=== PATIENT | male | born 1960 | race Caucasian/White ===

== ENCOUNTER 2017-06-11 18:37 | Inpatient (IN) | payer OTHER ==
[~2017-06-11] VITALS: Ht 188 cm; Wt 91.6 kg
--- NOTE | 2017-06-11 18:55 | NUR ---
[facility] BED 12. PT WAS SENT BY PMD FOR A MEDICAL EVAL. PT IS C/O ABDOMINAL DISTENSION AND REQUESTING FOR A PARACENTESIS. LAST PARACENTECIS WAS DONE 3 WEEKS AGO. PT ALSO C/O ABDOMONAL DISCOMFORT. PLACED ON MONITOR. AWAITING MD STUART.
--- NOTE | 2017-06-11 19:05 | NUR ---
DR BECK AT BEDSIDE FOR EVAL.
--- NOTE | 2017-06-11 19:10 | NUR ---
KITCHEN HELP HANDYMAN AT BEDSIDE FOR BLOOD DRAW.
--- NOTE | 2017-06-11 19:15 | NUR ---
PT UNABLE TO URINATE AT THIS TIME.
[2017-06-11 20:02] LABS: BASOPHILS # (AUTO) 0.1 /CMM (0.0-0.2); BASOPHILS % (AUTO) 0.7 % (0.0-2.0); EOSINOPHILS # (AUTO) 1.4 /CMM (0.0-0.7); HEMATOCRIT 36 % (39-51); HEMOGLOBIN 12.3 g/dL (13.5-17.5); LYMPHOCYTES # (AUTO) 1.2 /CMM (0.8-4.8); LYMPHOCYTES % (AUTO) 9.5 % (20.0-44.0); MEAN CORPUSCULAR HEMOGLOBIN 31 PG (26.0-33.0); MEAN CORPUSCULAR HGB CONC 34 g/dl (31.0-36.0); MEAN CORPUSCULAR VOLUME 91 fL (80-96); MONOCYTES % (AUTO) 7.6 % (2.0-12.0); NEUTROPHILS # (AUTO) 9.1 /CMM (1.8-8.9); NEUTROPHILS % (AUTO) 71.2 % (43.0-81.0); PLATELET COUNT (AUTO) 256 /CMM (150-450); RED BLOOD CELL COUNT(AUTO) 4.02 MIL/uL (4.5-6.0); WHITE BLOOD COUNT (AUTO) 12.8 K/uL (4.3-11.0)
[2017-06-11 20:07] LABS: ALBUMIN 3.2 g/dL (3.4-5.0); BILIRUBIN,DIRECT 0.4 mg/dL (0.0-0.2); CALCIUM, SERUM 9.9 mg/dL (8.5-10.1); CREATININE 4.5 mg/dL (0.6-1.3); TOTAL PROTEIN, SERUM 7.1 g/dL (6.4-8.2)
[2017-06-11 20:23] LABS: INR 1.04 (0.87-1.13); PROTHROMBIN TIME 10.8 SECS (9.5-12.7)
[2017-06-11] MEDS ORDERED: IV NS 0.9% 500 ML BAG IV ONE (21:00)
[2017-06-11] MEDS ORDERED: FAMOTIDINE/PF INJ 20 MG/2 ML VIAL IV ONE ×2 (21:00→21:19)
--- NOTE | 2017-06-11 22:42 | NUR ---
REPORT GIVEN TO NAZ. PT AWAITING TRANSFER TO FLOOR.
[2017-06-11] MEDS ORDERED: LACT10SO7 PO (22:52)
[2017-06-11] MEDS ORDERED: RIFA550T PO (22:52)
[2017-06-11] MEDS ORDERED: FLUT1DIS3 INH (22:52)
[2017-06-11 23:30] VITALS: BP 96/52
[2017-06-11] MEDS ORDERED: ACETAMINOPHEN 325 MG TABLET PO PRN (23:30)
[2017-06-11] MEDS ORDERED: ONDANSETRON HCL/PF 4 MG/2 ML VIAL IVP PRN (23:30)
[2017-06-11] MEDS ORDERED: MAGNESIUM HYDROXIDE 30 ML UDC PO PRN (23:30)
[2017-06-11] MEDS ORDERED: Z GUARD REMEDY 2 OZ OINT TP PRN (23:30)
[2017-06-11] MEDS ORDERED: ZOLPIDEM TARTRATE 5 MG TABLET PO PRN (23:30)
[2017-06-11] MEDS ORDERED: MAG HYDROX/AL HYDROX/SIMETH 30 ML UDC PO PRN (23:30)
--- NOTE | 2017-06-11 23:30 | NUR ---
MS/RN OPENING NOTES PT ARRIVED TO UNIT FROM ER VIA GURNEY. A/OX3, ON ROOM AIR, BREATHING EVEN AND UNLABORED. DENIES SOB OR ABDOMINAL PAIN. IV TO LAC PATENT AND INTACT. ORIENTED PT TO ROOM AND CALL LIGHT. SIDE RAILS UPX2. BED IN LOW/LOCKED POSITION WITH CALL LIGHT IN REACH. WILL CONTINUE TO MONITOR
--- NOTE | 2017-06-12 | NUR ---
MS/RN NOTES SEEN AND ASSESSED BY DR. MILLER
[2017-06-12 06:47] LABS: BASOPHILS # (AUTO) 0.1 /CMM (0.0-0.2); BASOPHILS % (AUTO) 0.6 % (0.0-2.0); EOSINOPHILS # (AUTO) 1.2 /CMM (0.0-0.7); HEMATOCRIT 34 % (39-51); HEMOGLOBIN 11.5 g/dL (13.5-17.5); LYMPHOCYTES # (AUTO) 1.3 /CMM (0.8-4.8); LYMPHOCYTES % (AUTO) 9.8 % (20.0-44.0); MEAN CORPUSCULAR HEMOGLOBIN 31 PG (26.0-33.0); MEAN CORPUSCULAR HGB CONC 34 g/dl (31.0-36.0); MEAN CORPUSCULAR VOLUME 91 fL (80-96); MONOCYTES # (AUTO) 1.1 /CMM (0.1-1.30); MONOCYTES % (AUTO) 7.9 % (2.0-12.0); NEUTROPHILS # (AUTO) 9.8 /CMM (1.8-8.9); NEUTROPHILS % (AUTO) 72.7 % (43.0-81.0); PLATELET COUNT (AUTO) 242 /CMM (150-450); RDW COEFFICIENT OF VARIATION 15.7 (11.5-15.0); RED BLOOD CELL COUNT(AUTO) 3.71 MIL/uL (4.5-6.0); WHITE BLOOD COUNT (AUTO) 13.4 K/uL (4.3-11.0)
--- NOTE | 2017-06-12 07:20 | NUR ---
MS/RN CLOSING NOTES PT AWAKE, SITTING UP IN BED. ON ROOM AIR, BREATHING EVEN AND UNLABORED. DENIES SOB OR PAIN AT THIS TIME. IV TO LAC PATENT AND INTACT. MADE PT COMFORTABLE DURING SHIFT. ALL NEEDS MET. CONSENT FOR US GUIDED PARACENTESIS SIGNED AND FLAGGED IN THE CHART. BED IN LOW/LOCKED POSITION WITH CALL LIGHT IN REACH. ENDORSED TO AM SHIFT ROCAEL.
[2017-06-12 07:25] LABS: CALCIUM, SERUM 9.3 mg/dL (8.5-10.1); CREATININE 4.5 mg/dL (0.6-1.3); PHOSPHORUS 6.9 mg/dL (2.5-4.9); POTASSIUM 5.2 mmol/L (3.5-5.1)
--- NOTE | 2017-06-12 07:25 | NUR ---
MS RN OPENING NOTES PATIENT RECEIVED AWAKE IN BED IN NO ACUTE SIGNS OF DISTRESS. A/O X 4 AND VERBALLY RESPONSIVE, DENIES PAIN OR DISCOMFORTS AT THIS TIME. ABDOMEN IS DISTENDED. ON ROOM AIR, BREATHING EVEN AND UNLABORED. IV ACCESS ON LAC PATENT AND INTACT. PT FOR US GUIDED PARACENTESIS AND URINE COLLECTION. BED IN LOW/LOCKED POSITION WITH CALL LIGHT IN REACH. WILL CONTINUE TO MONITOR PT ACCORDINGLY.
[2017-06-12 08:00] VITALS: BP 107/65
[2017-06-12] MEDS: RIFAXIMIN 550 MG TABLET PO SCH ×2 (08:39→16:26)
[2017-06-12] MEDS: LACTULOSE 10 G/15 ML UDC (PYXIS) PO SCH ×3 (08:39→16:26)
[2017-06-12 08:44] LABS: EOSINOPHILS % (MANUAL) 7 % (0-4); LYMPHOCYTES % (MANUAL) 3 % (16-48); MONOCYTES % (MANUAL) 8 % (0-11.0); NEUTROPHILS % (MANUAL) 82 (42-76)
[2017-06-12] MEDS ORDERED: FLUTICASONE/SALMETEROL DISKUS IH SCH (09:00)
--- NOTE | 2017-06-12 09:14 | NUR ---
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 LIMITED ASSESSMENT DUE TO PT REFUSING TO TURN TO OPPOSITE DIRECTION DUE TO ABDOMINAL DISCOMFORT. ABDOMEN IS HUGE. PT TO HAVE PARACENTESIS TODAY. RECOMMENDATIONS MADE FOR SKIN PROTECTION AND WOUND CARE. DISCUSSED WITH NURSING STAFF. LOW AIRLOSS BED (ISOFLEX) TO BE PLACED TODAY. WILL SEE PRN. BROWN IN AGREEMENT WITH PLAN OF CARE. Addendum: 06/12/17 at 0916 by TERESITA LAKHANI WNDNU Amended: Links added.
[2017-06-12] MEDS: HYDROGEL DRESSING 90 GM TUBE TP SCH (11:08)
--- NOTE | 2017-06-12 11:28 | NUR ---
RN NOTES PATIENT HAD PARACENTESIS DONE BY [employer]/S Frilp FRANCISCO AND REMOVED 10,OO0ML OF CLOUDY YELLOWISH DRAINAGE. ONE LITER BOTTLE SEND TO LAB, AWARE BUT NO SPECIAL TEST TO BE DONE AT THIS TIME TO THE DRAINAGE THAT WAS SENT TO LAB. PT IN NO ACUTE SIGNS OF DISTRESS AFTER PROCEDURE. V/S STABLE. ABDOMEN LESS DISTENDED AND SOFT. WILL CONTINUE TO MONITOR.
[2017-06-12] MEDS: FLUTICASONE/VILANTEROL 1 EACH BLST.W.DEV IH SCH (13:39)
[2017-06-12] MEDS ORDERED: ALBUMIN 25% 25 GM in PREMIX 1 EA IV PRN (14:30)
--- NOTE | 2017-06-12 15:01 | NUR ---
RN NOTES PT SEEN BY DR ISRAEL HOLDEN AND SHE'S AWARE OF ALL ABNORMAL LABS WITH ORDER TO COLLECT URINE FOR URINE CREATININE, URINE RANDOM NA, EOSINPHIL AND REPLACED LOW ALBUMIN WITH 25% 25GM II 100ML @ 50ML/HR. NA BICARBONATE 1,300MG Q12HRS ORDERED WELL. ULTRASOUND OF KIDNEYS ALSO ORDERED. WILL CONTINUE TO MONITOR
[2017-06-12] MEDS: SODIUM BICARBONATE 650 MG TABLET PO SCH (15:58)
[2017-06-12 16:00] VITALS: BP 118/64
--- NOTE | 2017-06-12 18:51 | NUR ---
MS RN CLOSING NOTES PATIENT AWAKE AND WATCHING TV IN BED AT THIS TIME. A/O X 4. ABLE TO VERBALIZED NEEDS AND CONCERNS, NO C/O PAIN VOICED THROUGHOUT THE DAY. ABDOMEN REMAINS DISTENDED. S/P PARACENTESIS THIS MORNING, NO POST COMPLICATIONS OBSERVED. ON ROOM AIR, NO SIGNS OF ACUTE RESPIRATORY DISTRESS NOTED. IV ACCESS ON LAC PATENT AND INTACT. KEPT BED IN LOW/LOCKED POSITION WITH SIDE-RAILS UP X2. CALL LIGHT WITHIN REACH. ALL NEEDS AND CARE ATTENDED WELL. WILL ENDORSED TO IMPORT AND EXPORT CLERK NURSE FOR ROCAEL.
--- NOTE | 2017-06-12 19:40 | NUR ---
MS/RN OPENING NOTES PT ASLEEP, RESTING COMFORTABLY IN BED. ON ROOM AIR, BREATHING EVEN AND UNLABORED. DENIES SOB OR PAIN AT THIS TIME. NO APPARENT DISTRESS NOTED. IV TO LAC PATENT AND INTACT. TO COLLECT URINE SPECIMEN. BED IN LOW/LOCKED POSITION WITH CALL LIGHT IN REACH. SIDE RAILS UPX2. WILL CONTINUE TO MONITOR
[2017-06-12 20:00] VITALS: BP 91/44
--- NOTE | 2017-06-12 21:52 | NUR ---
MS/RN NOTES RECHECKED BP TWICE 88/42 HR=83, 87/43, HR=81. NOTIFIED SANTIAGO CHASE AND THAT HE IS S/P PARACENTESIS WITH 10L OUT. RECEIVED ALBUMIN AND STATES THAT HIS BASELINE SBP IS USUALLY IN THE 90'S. PT IS ASYMPTOMATIC. NO NEW ORDERS. CONTINUE TO MONITOR.
--- NOTE | 2017-06-13 02:29 | NUR ---
MS/RN NOTES URINE SPECIMEN COLLECTED. CALLED LAB FOR CHEMICAL ANALYST.
[2017-06-13 02:54] LABS: APPEARANCE,URINE CLOUDY (CLEAR); BILIRUBIN,URINE NEGATIVE (NEGATIVE); BLOOD, URINE 2+ Ery/uL (NEGATIVE); COLOR,URINE YELLOW (YELLOW); KETONES,URINE NEGATIVE (NEGATIVE); LEUKOCYTE ESTERASE ,URINE 3+ (NEGATIVE); NITRITE, URINE NEGATIVE (NEGATIVE); PH,URINE 5.5 (5.0-8.0); PROTEIN,URINE TRACE mg/dl (NEGATIVE); UGLUCOSE NEGATIVE (NEGATIVE); UROBILINOGEN,URINE 0.2 EU/dL (0.2)
[2017-06-13 03:06] LABS: BACTERIA,URINE 3+ /HPF (None Seen); SQUAMOUS EPITHELIAL CELL,UR Few /HPF (None Seen); WBC,URINE TOO NUMEROUS TO COUN /HPF (0-3)
[2017-06-13 03:19] LABS: CREATININE, URINE 156.1 MG/DL (30.0-125.0)
[2017-06-13] MEDS: SODIUM BICARBONATE 650 MG TABLET PO SCH ×2 (03:31→16:42)
--- NOTE | 2017-06-13 06:53 | NUR ---
MS/RN CLOSING NOTES PT AWAKE, SITTING UP IN BED, HIGH FOWLERS POSITION. ON ROOM AIR, BREATHING EVEN AND UNLABORED. DENIES SOB, NO COMPLAINTS OF PAIN AT THIS TIME. ON STRICT I&O. IV TO LAC PATENT AND INTACT. MADE PT COMFORTABLE DURING SHIFT. ALL NEEDS MET. NO SIGNIFICANT CHANGES OVERNIGHT. BED IN LOW/LOCKED POSITION WITH CALL LIGHT IN REACH. SIDE RAILS UPX2. WILL ENDORSE TO AM SHIFT ROCAEL.
[2017-06-13 07:00] LABS: BASOPHILS # (AUTO) 0.1 /CMM (0.0-0.2); BASOPHILS % (AUTO) 0.6 % (0.0-2.0); EOSINOPHILS # (AUTO) 1.5 /CMM (0.0-0.7); EOSINOPHILS % (AUTO) 14.4 % (0.0-6.0); HEMATOCRIT 30 % (39-51); HEMOGLOBIN 10.2 g/dL (13.5-17.5); LYMPHOCYTES # (AUTO) 1.3 /CMM (0.8-4.8); LYMPHOCYTES % (AUTO) 12.2 % (20.0-44.0); MEAN CORPUSCULAR HEMOGLOBIN 31 PG (26.0-33.0); MEAN CORPUSCULAR HGB CONC 34 g/dl (31.0-36.0); MEAN CORPUSCULAR VOLUME 91 fL (80-96); MONOCYTES # (AUTO) 0.8 /CMM (0.1-1.30); MONOCYTES % (AUTO) 7.4 % (2.0-12.0); NEUTROPHILS # (AUTO) 6.9 /CMM (1.8-8.9); NEUTROPHILS % (AUTO) 65.4 % (43.0-81.0); PLATELET COUNT (AUTO) 178 /CMM (150-450); RDW COEFFICIENT OF VARIATION 15.6 (11.5-15.0); RED BLOOD CELL COUNT(AUTO) 3.31 MIL/uL (4.5-6.0); WHITE BLOOD COUNT (AUTO) 10.5 K/uL (4.3-11.0)
[2017-06-13 07:05] LABS: ALBUMIN 2.6 g/dL (3.4-5.0); BILIRUBIN,DIRECT 0.4 mg/dL (0.0-0.2); TOTAL PROTEIN, SERUM 5.6 g/dL (6.4-8.2)
[2017-06-13 07:16] LABS: CALCIUM, SERUM 8.7 mg/dL (8.5-10.1); CREATININE 4.4 mg/dL (0.6-1.3); PHOSPHORUS 5.8 mg/dL (2.5-4.9); POTASSIUM 5.1 mmol/L (3.5-5.1)
[2017-06-13 07:17] LABS: INR 1.1 (0.87-1.13); PROTHROMBIN TIME 11.5 SECS (9.5-12.7)
[2017-06-13 08:00] VITALS: BP 108/51
--- NOTE | 2017-06-13 08:00 | NUR ---
MS/RN AM NOTES PT AWAKE, SITTING UP IN BED, HIGH FOWLERS POSITION,EATING BREAKFAST. ON ROOM AIR, BREATHING EVEN AND UNLABORED. DENIES SOB, NO COMPLAINTS OF PAIN AT THIS TIME. ON STRICT I&O. IV TO LAC PATENT AND INTACT.BED IN LOW/LOCKED POSITION WITH CALL LIGHT WITHIN REACH. SIDE RAILS UPX2.
[2017-06-13] MEDS: RIFAXIMIN 550 MG TABLET PO SCH ×2 (08:39→16:41)
[2017-06-13] MEDS: LACTULOSE 10 G/15 ML UDC (PYXIS) PO SCH ×3 (08:39→16:42)
[2017-06-13] MEDS: FLUTICASONE/VILANTEROL 1 EACH BLST.W.DEV IH SCH (08:41)
[2017-06-13] MEDS: HYDROGEL DRESSING 90 GM TUBE TP SCH (08:41)
[2017-06-13] MEDS ORDERED: BISACODYL SUPP (10 MG) 10 MG/SUPP.RECT SUPP.RECT RC PRN (09:30)
[2017-06-13] MEDS ORDERED: IV NS 0.9% 1,000 ML IV ONE (09:30)
[2017-06-13] MEDS ORDERED: BISACODYL (5 MG) 5 MG TABLET.DR PO PRN (09:30)
[2017-06-13 16:00] VITALS: BP 101/52
--- NOTE | 2017-06-13 18:32 | NUR ---
MS RN CLOSING NOTES PATIENT AWAKE AND WATCHING TV IN BED AT THIS TIME. A/O X 4. ABLE TO VERBALIZED NEEDS AND CONCERNS, NO C/O PAIN.ON ROOM AIR, NO SIGNS OF ACUTE RESPIRATORY DISTRESS NOTED. IV ACCESS ON LAC PATENT AND INTACT WITH IVF NS AT 75 ML/HR INFUSING WELL. KEPT BED IN LOW/LOCKED POSITION WITH SIDE-RAILS UP X2. CALL LIGHT WITHIN REACH. ALL NEEDS AND CARE ATTENDED WELL.
[2017-06-13 20:00] VITALS: BP 97/43
[2017-06-13] MEDS: HYDROCODONE/APAP 5/325MG 1 EACH TABLET PO PRN (22:14)
[2017-06-14] MEDS: SODIUM BICARBONATE 650 MG TABLET PO SCH ×2 (04:17→16:45)
--- NOTE | 2017-06-14 06:24 | NUR ---
MS RN NOTES AWAKE & RESPONSIVE. NOT IN ANY DISTRESS. NO SOB NOTED. DENIES ANY PAIN OR DISCOMFORT AT THIS TIME. WITH IV-HL PATENT & INTACT. MONITORED ACCORDINGLY. CALL LIGHT WITHIN REACH. BED IN LOWEST POSITION. SR UP X 2 FOR SAFETY. WILL ENDORSE TO NEXT SHIFT.
[2017-06-14 06:26] LABS: BASOPHILS # (AUTO) 0.1 /CMM (0.0-0.2); BASOPHILS % (AUTO) 0.9 % (0.0-2.0); EOSINOPHILS # (AUTO) 1.9 /CMM (0.0-0.7); EOSINOPHILS % (AUTO) 14.7 % (0.0-6.0); HEMATOCRIT 32 % (39-51); HEMOGLOBIN 10.7 g/dL (13.5-17.5); LYMPHOCYTES # (AUTO) 1.3 /CMM (0.8-4.8); LYMPHOCYTES % (AUTO) 10.1 % (20.0-44.0); MEAN CORPUSCULAR HEMOGLOBIN 31 PG (26.0-33.0); MEAN CORPUSCULAR HGB CONC 33 g/dl (31.0-36.0); MEAN CORPUSCULAR VOLUME 92 fL (80-96); MONOCYTES % (AUTO) 7.9 % (2.0-12.0); NEUTROPHILS # (AUTO) 8.3 /CMM (1.8-8.9); NEUTROPHILS % (AUTO) 66.4 % (43.0-81.0); PLATELET COUNT (AUTO) 200 /CMM (150-450); RDW COEFFICIENT OF VARIATION 15.6 (11.5-15.0); RED BLOOD CELL COUNT(AUTO) 3.47 MIL/uL (4.5-6.0); WHITE BLOOD COUNT (AUTO) 12.6 K/uL (4.3-11.0)
[2017-06-14 06:51] LABS: CALCIUM, SERUM 8.5 mg/dL (8.5-10.1); CREATININE 4.5 mg/dL (0.6-1.3); MAGNESIUM 2.9 mg/dL (1.8-2.4); PHOSPHORUS 5.4 mg/dL (2.5-4.9); POTASSIUM 4.9 mmol/L (3.5-5.1)
--- NOTE | 2017-06-14 07:35 | NUR ---
MS RN OPENING NOTES RECEIVED PATIENT IN BED AWAKE, RESPONSIVE, A/OX4. NO ACUTE DISTRESS, NO SOB NOTED. DENIES ANY PAIN AND DISCOMFORT. IV SITE INTACT AND PATENT. KEPT PATIENT SAFE AND COMFORTABLE. BED IN LOW POSITION, LOCKED, SIDERAILS UPX2. HOB ELEVATED. CALL LIGHT IN REACH. WILL CONTINUE TO MONITOR ACCORDINGLY.
[2017-06-14 08:00] VITALS: BP 105/59
--- NOTE | 2017-06-14 08:28 | NUR ---
RN NOTES NOTIFIED DR GRIFFIN OF PATIENT'S CRITICAL BUN LEVEL OF 131. WILL CONTINUE TO MONITOR ACCORDINGLY.
[2017-06-14] MEDS: RIFAXIMIN 550 MG TABLET PO SCH ×2 (09:29→16:56)
[2017-06-14] MEDS: HYDROGEL DRESSING 90 GM TUBE TP SCH (09:30)
[2017-06-14] MEDS: FLUTICASONE/VILANTEROL 1 EACH BLST.W.DEV IH SCH (09:30)
[2017-06-14] MEDS: LACTULOSE 10 G/15 ML UDC (PYXIS) PO SCH ×3 (09:30→16:56)
--- NOTE | 2017-06-14 15:15 | NUR ---
RN NOTES PER DR HOSKINS, PERMACATH PLACEMENT TO BE DONE ON Sunday06/16/2017 @ 0800. NPO AFTER MIDNIGHT ON 06/15/2017. CBC, BMP, PT, PTT ON SUNDAY MORNING BEFORE PERMACATH PLACEMENT.
[2017-06-14 16:00] VITALS: BP 93/50
[2017-06-14 19:22] VITALS: BP 160/74
--- NOTE | 2017-06-14 19:23 | NUR ---
RN CLOSING NOTES PATIENT IN BED RESTING. NO ACUTE DISTRESS, NO SOB NOTED. DENIES PAIN OR DISCOMFORT. ALL NEEDS ATTENDED AND PROVIDED. KEPT PATIENT SAFE AND COMFORTABLE. BED IN LOW POSITION, LOCKED, SIDERAILS UP X2. CALL LIGHT IN REACH. ENDORSED TO NIGHT RN FOR ROCAEL.
[2017-06-14 20:00] VITALS: BP 103/42
[2017-06-15] MEDS: HYDROCODONE/APAP 5/325MG 1 EACH TABLET PO PRN ×3 (02:37→20:18)
[2017-06-15] MEDS: SODIUM BICARBONATE 650 MG TABLET PO SCH ×2 (04:05→17:02)
[2017-06-15 06:14] LABS: BASOPHILS # (AUTO) 0.2 /CMM (0.0-0.2); BASOPHILS % (AUTO) 1.2 % (0.0-2.0); EOSINOPHILS # (AUTO) 1.8 /CMM (0.0-0.7); EOSINOPHILS % (AUTO) 13.2 % (0.0-6.0); HEMATOCRIT 31 % (39-51); HEMOGLOBIN 10.6 g/dL (13.5-17.5); LYMPHOCYTES # (AUTO) 1.6 /CMM (0.8-4.8); LYMPHOCYTES % (AUTO) 11.3 % (20.0-44.0); MEAN CORPUSCULAR HEMOGLOBIN 31 PG (26.0-33.0); MEAN CORPUSCULAR HGB CONC 34 g/dl (31.0-36.0); MEAN CORPUSCULAR VOLUME 91 fL (80-96); MONOCYTES % (AUTO) 7.1 % (2.0-12.0); NEUTROPHILS # (AUTO) 9.2 /CMM (1.8-8.9); NEUTROPHILS % (AUTO) 67.2 % (43.0-81.0); PLATELET COUNT (AUTO) 178 /CMM (150-450); RDW COEFFICIENT OF VARIATION 15.8 (11.5-15.0); RED BLOOD CELL COUNT(AUTO) 3.43 MIL/uL (4.5-6.0); WHITE BLOOD COUNT (AUTO) 13.7 K/uL (4.3-11.0)
[2017-06-15 06:42] LABS: CALCIUM, SERUM 8.8 mg/dL (8.5-10.1); CREATININE 4.6 mg/dL (0.6-1.3); PHOSPHORUS 5.9 mg/dL (2.5-4.9); POTASSIUM 5.6 mmol/L (3.5-5.1)
--- NOTE | 2017-06-15 07:16 | NUR ---
MS RN OPENING NOTES RECEIVED PT FROM NIGHTSHIFT NURSE IN STABLE CONDITION. PT IS A/O X4. NO SOB OR SIGNS OF DISTRESS NOTED. BREATHING IS EVEN AND UNLABORED. PT DENIES ANY PAIN AT THIS TIME. IV PRESENT ON LEFT AC 20G HL. IV IS PATENT TO NS FLUSH AND INTACT. NO REDNESS OR SIGNS OF INFILTRATION NOTED. BED IN LOW LOCKED POSITION, SIDE RAILS UP X2, CALL LIGHT WITHIN REACH. WILL CONTINUE TO MONITOR
[2017-06-15 07:50] LABS: EOSINOPHILS % (MANUAL) 10 % (0-4); LYMPHOCYTES % (MANUAL) 8 % (16-48); MONOCYTES % (MANUAL) 5 % (0-11.0); NEUTROPHILS % (MANUAL) 77 (42-76)
[2017-06-15 08:00] VITALS: BP 102/57
[2017-06-15] MEDS: LACTULOSE 10 G/15 ML UDC (PYXIS) PO SCH ×3 (08:57→17:01)
[2017-06-15] MEDS: RIFAXIMIN 550 MG TABLET PO SCH ×2 (08:57→17:01)
[2017-06-15] MEDS: FLUTICASONE/VILANTEROL 1 EACH BLST.W.DEV IH SCH (08:57)
[2017-06-15] MEDS: HYDROGEL DRESSING 90 GM TUBE TP SCH (08:58)
[2017-06-15] MEDS: SEVELAMER CARBONATE 0.8 GM POWD.PACK GT SCH ×2 (13:12→17:02)
[2017-06-15 16:00] VITALS: BP 105/54
--- NOTE | 2017-06-15 19:15 | NUR ---
MS OLGUINASSISTANT LIBRARIAN NOTES PT REMAINS IN STABLE. NO ACUTE CHANGES IN POSITION DURING SHIFT. ALL DUE MEDS GIVEN AND ORDERS CARRIED OUT ACCORDINGLY. ALL SAFETY MEASURES IN PLACE. ENDORSED TO NIGHTSKYFT NURSE THAT PT WILL BE NPO POST MIDNIGHT FOR SCHEDULED PERMCATH PLACEMENT IN THE MORNING. ALL SAFETY MEASURES REMAIN IN PLACE Addendum: 06/15/17 at 1917 by SHAKIRA CLOUD RN *ms olguin closing notes
--- NOTE | 2017-06-15 19:40 | NUR ---
MS RN INITIAL NOTES PT IS A/O X4 ABLE TO MAKE NEEDS KNOWN. NO SOB OR SIGNS OF DISTRESS NOTED. BREATHING IS EVEN AND UNLABORED. PT DENIES ANY PAIN AT THIS TIME. IV ACCESS IS INTACT AND PATENT. BED IN LOW LOCKED POSITION, SIDE RAILS UP X2, CALL LIGHT WITHIN REACH. WILL CONTINUE TO MONITOR
[2017-06-15 20:00] VITALS: BP 98/52
[2017-06-16] MEDS: SODIUM BICARBONATE 650 MG TABLET PO SCH ×2 (03:30→16:15)
[2017-06-16 06:32] LABS: BASOPHILS # (AUTO) 0.1 /CMM (0.0-0.2); BASOPHILS % (AUTO) 0.4 % (0.0-2.0); EOSINOPHILS # (AUTO) 1.6 /CMM (0.0-0.7); HEMATOCRIT 33 % (39-51); HEMOGLOBIN 11.2 g/dL (13.5-17.5); LYMPHOCYTES # (AUTO) 1.2 /CMM (0.8-4.8); LYMPHOCYTES % (AUTO) 7.6 % (20.0-44.0); MEAN CORPUSCULAR HEMOGLOBIN 31 PG (26.0-33.0); MEAN CORPUSCULAR HGB CONC 33 g/dl (31.0-36.0); MEAN CORPUSCULAR VOLUME 91 fL (80-96); MONOCYTES # (AUTO) 0.9 /CMM (0.1-1.30); MONOCYTES % (AUTO) 5.6 % (2.0-12.0); NEUTROPHILS # (AUTO) 12.2 /CMM (1.8-8.9); NEUTROPHILS % (AUTO) 76.4 % (43.0-81.0); PLATELET COUNT (AUTO) 203 /CMM (150-450); RDW COEFFICIENT OF VARIATION 15.9 (11.5-15.0); RED BLOOD CELL COUNT(AUTO) 3.66 MIL/uL (4.5-6.0)
[2017-06-16 06:48] LABS: CALCIUM, SERUM 8.6 mg/dL (8.5-10.1); CREATININE 4.6 mg/dL (0.6-1.3)
[2017-06-16 06:50] LABS: INR 1.09 (0.87-1.13); PROTHROMBIN TIME 11.3 SECS (9.5-12.7)
[2017-06-16] MEDS ORDERED: LIDOCAINE 0.5% HCL 50 ML VIAL ONE (06:59)
[2017-06-16] MEDS ORDERED: ANESTHESIA TRAY IN PYXIS 1 EA TRAY MC ONE (06:59)
[2017-06-16] MEDS ORDERED: HEPARIN SODIUM, PORCINE 1,000 UNIT/ML VIAL ONE (06:59)
--- NOTE | 2017-06-16 07:35 | NUR ---
MS/RN OPENING NOTE PATIENT IN BED IN STABLE CONDITION. A/O X 4. NO SIGNS OF ACUTE DISTRESS. NO COMPLAIN OF PAIN OR DISCOMFORT. LEFT FOR SURGERY IN STABLE CONDITION. ALL NEEDS ATTENDED.WILL CONTINUE TO MONITOR TO ENSURE SAFETY.
--- NOTE | 2017-06-16 07:47 | NUR ---
MS RN CLOSING NOTES PT IS AWAKE AND SITTING UP IN BED. NO SIGNS OF SOB OR DISTRESS. AWAITING PERMACATH PLACEMENT. PT HAS BEEN NPO SINCE MIDNIGHT. CHECKLIST AND CONSENT HAVE BEEN COMPLETED. BED IS IN LOW AND LOCKED POSITION, CALL LIGHT WITHIN REACH. WILL ENDORSE TO DAYSHIFT
[2017-06-16] MEDS ORDERED: FENTANYL PF 100MCG/2ML AMPUL ONE (07:51)
[2017-06-16 08:00] VITALS: BP 101/57
[2017-06-16] MEDS: SEVELAMER CARBONATE 0.8 GM POWD.PACK GT SCH ×3 (08:00→17:52)
[2017-06-16] MEDS ORDERED: EPHEDRINE SULFATE IV 50MG VIAL ONE (08:38)
[2017-06-16] MEDS ORDERED: ONDANSETRON HCL/PF 4 MG/2 ML VIAL ONE (08:44)
--- NOTE | 2017-06-16 09:01 | NUR ---
MS/RN RETURN FROM SURGERY PATIENT RETURN FROM SURGERY IN STABLE CONDITION. S/P RIGHT CHEST SUBCLAVIAN CATHETER PLACEMENT. TOLERATED WELL. SITE NOTED WITH INTACT DRESSING. NO SIGNS OF BLEEDING. PER DR HOSKINS, RESUME ALL PRE OP MEDS, ORDERS AND DIET. STAT CXR AND LINE OKAY TO USE FOR DIALYSIS. ALL ORDERS NOTED AND CARRIED OUT. CALL LIGHT WITHIN REACH. ALL NEEDS ATTENDED. WILL CONTINUE TO MONITOR TO ENSURE SAFETY.
[2017-06-16] MEDS: RIFAXIMIN 550 MG TABLET PO SCH ×2 (09:18→16:16)
[2017-06-16] MEDS: FLUTICASONE/VILANTEROL 1 EACH BLST.W.DEV IH SCH (09:18)
[2017-06-16] MEDS: LACTULOSE 10 G/15 ML UDC (PYXIS) PO SCH ×3 (09:18→16:16)
[2017-06-16] MEDS: HYDROGEL DRESSING 90 GM TUBE TP SCH (09:18)
[2017-06-16] MEDS: HYDROCODONE/APAP 5/325MG 1 EACH TABLET PO PRN ×2 (09:19→20:21)
--- NOTE | 2017-06-16 10:37 | NUR ---
MS/RN SEEN BY DR BUCHANAN PATIENT SEEN BY DR BUCHANAN AND RELAYED PATIENT'S LAB RESULTS WITH NEW ORDER FOR F/U LABS IN AM. SCHEDULE TO HAVE HEMODIALYSIS TODAY.
[2017-06-16 16:00] VITALS: BP 109/71
[2017-06-16] MEDS: LEVOFLOXACIN 750 MG /D5W 150ML 750 MG in PREMIX 1 EA IV SCH (16:15)
--- NOTE | 2017-06-16 19:13 | NUR ---
MS/RN CLOSING NOTE PATIENT IN BED IN STABLE CONDITION. A/O X 4. NO SIGNS OF ACUTE DISTRESS. NO COMPLAIN OF PAIN OR DISCOMFORT. ALL NEEDS ATTENDED TO. CALL LIGHT WITHIN REACH. ALL NEEDS ATTENDED TO. WILL ENDORSE TO NEXT SHIFT FOR CONTINUITY OF CARE.
--- NOTE | 2017-06-16 19:30 | NUR ---
MSRN FULLY AWAKE, NO NEEDS OF THIS TIME. NO SOB, ABD DISTENDED, V/S MONITORED. SAFETY PRECAUTIONS EMPHASIZED, WELL UNDERSTOOD.
[2017-06-16 20:00] VITALS: BP 90/44
--- NOTE | 2017-06-16 20:26 | NUR ---
MSRN VERBALIZES RIGHT UPPER CW PAIN FROM [place] CATH INSERTION TODAY. NORCO 1 TAB ADMINISTERED. KEPT COMFORTABLE, ALL NEEDS ATTENDED.
[2017-06-16 20:32] VITALS: BP 90/44
--- NOTE | 2017-06-16 23:30 | NUR ---
MSRN REMINDED NEED TO TAKE DUE MED EARLY AM, REFUSED STATED, WILL TAKE AT 6AM INSTEAD OF SCHEDULED TIME. NO OTHER NEEDS MADE.
[2017-06-17] MEDS: SODIUM BICARBONATE 650 MG TABLET PO SCH ×2 (06:18→15:48)
[2017-06-17 07:13] LABS: BASOPHILS % (AUTO) 0.1 % (0.0-2.0); EOSINOPHILS # (AUTO) 1.7 /CMM (0.0-0.7); EOSINOPHILS % (AUTO) 8.2 % (0.0-6.0); HEMATOCRIT 33 % (39-51); HEMOGLOBIN 10.8 g/dL (13.5-17.5); LYMPHOCYTES # (AUTO) 0.9 /CMM (0.8-4.8); LYMPHOCYTES % (AUTO) 4.7 % (20.0-44.0); MEAN CORPUSCULAR HEMOGLOBIN 31 PG (26.0-33.0); MEAN CORPUSCULAR HGB CONC 33 g/dl (31.0-36.0); MEAN CORPUSCULAR VOLUME 93 fL (80-96); MONOCYTES # (AUTO) 1.5 /CMM (0.1-1.30); MONOCYTES % (AUTO) 7.5 % (2.0-12.0); NEUTROPHILS % (AUTO) 79.5 % (43.0-81.0); PLATELET COUNT (AUTO) 122 /CMM (150-450); RDW COEFFICIENT OF VARIATION 15.7 (11.5-15.0); RED BLOOD CELL COUNT(AUTO) 3.53 MIL/uL (4.5-6.0); WHITE BLOOD COUNT (AUTO) 20.1 K/uL (4.3-11.0)
[2017-06-17 07:21] LABS: ALBUMIN 2.5 g/dL (3.4-5.0); BILIRUBIN,TOTAL 0.7 mg/dL (0.2-1.0); CALCIUM, SERUM 8.8 mg/dL (8.5-10.1); CREATININE 4.6 mg/dL (0.6-1.3); MAGNESIUM 2.8 mg/dL (1.8-2.4); PHOSPHORUS 6.1 mg/dL (2.5-4.9); POTASSIUM 6.1 mmol/L (3.5-5.1); TOTAL PROTEIN, SERUM 5.9 g/dL (6.4-8.2)
--- NOTE | 2017-06-17 07:37 | NUR ---
MS RN: INITIAL NOTE RECEIVED PT A/OX4. ON MS. BRP AND URINAL. IS BEDREST. NO DISTRESS NOTED. NO PAIN NOTED. NO SOB NOTED. ON ROOM AIR SATING AT 96%. H/L LEFT AC #20. SITE CLEAR AND PATENT. ON REGULAR DIET. ABDOMINAL DISTENTION DUE TO ASCITES. RESTING COMFORTABLY IN BED. CALL LIGHT WITHIN REACH.
[2017-06-17 08:10] VITALS: BP 90/54
[2017-06-17] MEDS: FLUTICASONE/VILANTEROL 1 EACH BLST.W.DEV IH SCH (08:23)
[2017-06-17] MEDS: LACTULOSE 10 G/15 ML UDC (PYXIS) PO SCH ×3 (08:24→17:14)
[2017-06-17] MEDS: SEVELAMER CARBONATE 0.8 GM POWD.PACK GT SCH ×3 (08:24→17:14)
[2017-06-17] MEDS: HYDROGEL DRESSING 90 GM TUBE TP SCH (08:24)
[2017-06-17] MEDS: RIFAXIMIN 550 MG TABLET PO SCH ×2 (08:24→17:14)
--- NOTE | 2017-06-17 10:32 | NUR ---
DIALYSIS COMPLETED. 1 LITER REMOVED. BP 103/46, PULSE 100, RR18, O2 97% ON ROOM AIR. NO DISTRESS NOTED. NO SOB NOTED. NO PAIN NOTED. YIMI CATH SITE DRESSING INTACT IN RIGHT UPPER CHEST.
--- NOTE | 2017-06-17 11:00 | NUR ---
WOUND DRESSING CHANGED ORDERED BY MD. CLEANSED, HYDROGEL AND MEPILEX PLACED.
[2017-06-17 16:00] VITALS: BP 87/50
--- NOTE | 2017-06-17 18:26 | NUR ---
MS RN: CLOSING NOTE PT A/OX4. TOOK ALL MEDICATIONS ON TIME. NO ADVERSE REACTIONS NOTED. NO PAIN NOTED. NO SOB NOTED. NO DISTRESS NOTED. R AC SL. NO IV FLUIDS RUNNING. R UPPER CHEST PORTHA CATH. DRESSING INTACT. DIALYSIS DONE 06/17/17. 1 LITER REMOVED. PT STABLE. ON RENAL DIET. NO N/V NOTED. ON STRICT JAMEL. AMBULATED WITH ASSIST. WOUND DRESSING CHANGES ORDERED. TURNED AND REPOSITIONED NEEDED. INDEPENDENT WITH BED MOBILITY. RESTING COMFORTABLY IN BED. CALL LIGHT WITHIN REACH.
--- NOTE | 2017-06-17 19:45 | NUR ---
RN OPENING NOTES RECEIVED REPORT FROM DAYSOKFT SHARIF ALBRIGHT. FOUND Pt AWAKE, RESTING IN BED. NO S/S OF ACUTE DISTRESS OR SOB NOTED. NO SIGNS OF PAIN AT THIS TIME. Pt IS A/OX4, VERBAL, ABLE TO MAKE NEEDS KNOWN. IV ACCESS ON LAC#20G, SL. RCW - HD CATH. HD TODAY WITH 1L OUTPUT. SAFETY MEASURES IN PLACE. BED LOW, LOCKED, HOB ELEVATED, SIDE RAILS UP, CALL LIGHT AND BED SIDE TABLE WITHIN REACH. WILL CONTINUE TO MONITOR Pt THROUGHOUT THE NIGHT FOR SAFETY.
[2017-06-17 20:00] VITALS: BP 96/60
--- NOTE | 2017-06-17 22:50 | NUR ---
RN NOTES Pt REFUSED PICTURES AND DRESSING CHANGE AT THIS TIME.
[2017-06-18] MEDS: SODIUM BICARBONATE 650 MG TABLET PO SCH (03:50)
[2017-06-18] MEDS: HYDROCODONE/APAP 5/325MG 1 EACH TABLET PO PRN ×2 (03:53→14:30)
[2017-06-18 06:33] LABS: BASOPHILS # (AUTO) 0.1 /CMM (0.0-0.2); BASOPHILS % (AUTO) 0.4 % (0.0-2.0); EOSINOPHILS # (AUTO) 1.3 /CMM (0.0-0.7); EOSINOPHILS % (AUTO) 8.2 % (0.0-6.0); HEMATOCRIT 32 % (39-51); LYMPHOCYTES # (AUTO) 1.1 /CMM (0.8-4.8); MEAN CORPUSCULAR HEMOGLOBIN 31 PG (26.0-33.0); MEAN CORPUSCULAR HGB CONC 34 g/dl (31.0-36.0); MEAN CORPUSCULAR VOLUME 91 fL (80-96); MONOCYTES # (AUTO) 1.3 /CMM (0.1-1.30); MONOCYTES % (AUTO) 7.7 % (2.0-12.0); NEUTROPHILS # (AUTO) 12.5 /CMM (1.8-8.9); NEUTROPHILS % (AUTO) 76.7 % (43.0-81.0); PLATELET COUNT (AUTO) 112 /CMM (150-450); RDW COEFFICIENT OF VARIATION 16.4 (11.5-15.0); RED BLOOD CELL COUNT(AUTO) 3.55 MIL/uL (4.5-6.0); WHITE BLOOD COUNT (AUTO) 16.3 K/uL (4.3-11.0)
--- NOTE | 2017-06-18 06:34 | NUR ---
RN CLOSING NOTES NO SIGNIFICANT CHANGES IN Pt's CONDITION. Pt REMAINS STABLE AT THIS TIME. NO S/S OF ACUTE DISTRESS OR SEVERE SOB NOTED DURING THE NIGHT. ALL NEEDS MET AND ATTENDED TO. SAFETY MEASURES IN PLACE. WILL ENDORSE TO DAYSHIFT RN FOR Pt's ROCAEL.
--- NOTE | 2017-06-18 07:00 | NUR ---
RN INITIAL NOTES: PATIENT RESTING IN BED. ALERT ORIENTED X4. NONLBAORED BREATHING ON ROOM AIR. DENIES PAIN AT THE MOMENT. IV SITE PATENT AND INTACT. BED IN LOWEST LOCKED POSITION. WILL CONTINUE TO MONITOR
[2017-06-18 07:11] LABS: CALCIUM, SERUM 8.4 mg/dL (8.5-10.1); CREATININE 4.6 mg/dL (0.6-1.3); MAGNESIUM 2.6 mg/dL (1.8-2.4); PHOSPHORUS 6.3 mg/dL (2.5-4.9); POTASSIUM 5.8 mmol/L (3.5-5.1)
[2017-06-18 08:00] VITALS: BP 104/63
[2017-06-18] MEDS: SEVELAMER CARBONATE 0.8 GM POWD.PACK GT SCH ×3 (08:19→18:00)
[2017-06-18] MEDS: LACTULOSE 10 G/15 ML UDC (PYXIS) PO SCH ×3 (08:21→17:37)
[2017-06-18] MEDS: RIFAXIMIN 550 MG TABLET PO SCH ×2 (08:21→17:37)
[2017-06-18] MEDS: FLUTICASONE/VILANTEROL 1 EACH BLST.W.DEV IH SCH (08:22)
[2017-06-18] MEDS: HYDROGEL DRESSING 90 GM TUBE TP SCH ×2 (08:24→08:25)
[2017-06-18] MEDS: HYDROGEL DRESSING 90 GM TUBE TP PRN (08:24)
[2017-06-18 16:00] VITALS: BP 116/51
[2017-06-18] MEDS: LEVOFLOXACIN 750 MG /D5W 150ML 750 MG in PREMIX 1 EA IV SCH (17:37)
--- NOTE | 2017-06-18 19:25 | NUR ---
RN CLOSING NOTES: PATIENT RESTING IN BED. ALERT ORIENTED X4. NONLBAORED BREATHING ON ROOM AIR. DENIES PAIN AT THE MOMENT. IV SITE PATENT AND INTACT. PATIENT RECEIVED DIALYSIS TODAY WITH AN OUTPUT OF 1.5 L. LEVAQUIN WAS ADMINISTERED LATE DUE TO DIALYSIS BEING IN PROCESS. PATIENT VOMITTED TWICE AFTER DIALYSIS FOR A TOTAL OF 400 CC OF CLEAR LIQUID. VS WNL. PATIENT STABLE. PATIENT REFUSED ZOFRAN WELL RENVELA. DURING SHIFT, WOUND DRESSING WAS OFFERED MULTIPLE TIMES. PATIENT KEPT REFUSING. BED IN LOWEST LOCKED POSITION. ENDORSED TO NEXT SHIFT
[2017-06-18 19:30] VITALS: BP 98/59
--- NOTE | 2017-06-18 19:40 | NUR ---
MSRN FULLY AWAKE, STANDBY ASSIST TO RESTROOM. NO SOB, A/O X4. ALL NEEDS ATTENDED, SAFETY PRECAUTIONS EMPHASIZED, WELL UNDERSTOOD. ABDOMEN REMAINS DISTENDED, ON LACTULOSE, HAS BEEN MOVING HIS BOWELS. CLOSELY WATCHED
[2017-06-18 20:42] VITALS: BP 98/59
--- NOTE | 2017-06-19 00:30 | NUR ---
MSRN BRP, LOOSE BM, REMINDED NEED TO CHANGE LEFT BUTTOCK DRESSING, DECLINED, STATED "TOMORROW".
--- NOTE | 2017-06-19 03:30 | NUR ---
MSRN NO NEEDS FOR NOW
--- NOTE | 2017-06-19 06:05 | NUR ---
CARMELO SLEEPING, CLOSELY WATCHED.
[2017-06-19 06:56] LABS: BASOPHILS # (AUTO) 0.1 /CMM (0.0-0.2); BASOPHILS % (AUTO) 0.8 % (0.0-2.0); EOSINOPHILS # (AUTO) 0.8 /CMM (0.0-0.7); EOSINOPHILS % (AUTO) 5.9 % (0.0-6.0); HEMATOCRIT 32 % (39-51); HEMOGLOBIN 10.8 g/dL (13.5-17.5); LYMPHOCYTES # (AUTO) 1.3 /CMM (0.8-4.8); LYMPHOCYTES % (AUTO) 9.2 % (20.0-44.0); MEAN CORPUSCULAR HEMOGLOBIN 31 PG (26.0-33.0); MEAN CORPUSCULAR HGB CONC 34 g/dl (31.0-36.0); MEAN CORPUSCULAR VOLUME 92 fL (80-96); MONOCYTES # (AUTO) 1.1 /CMM (0.1-1.30); MONOCYTES % (AUTO) 7.8 % (2.0-12.0); NEUTROPHILS # (AUTO) 10.9 /CMM (1.8-8.9); NEUTROPHILS % (AUTO) 76.3 % (43.0-81.0); PLATELET COUNT (AUTO) 109 /CMM (150-450); RDW COEFFICIENT OF VARIATION 16.1 (11.5-15.0); RED BLOOD CELL COUNT(AUTO) 3.51 MIL/uL (4.5-6.0); WHITE BLOOD COUNT (AUTO) 14.3 K/uL (4.3-11.0)
--- NOTE | 2017-06-19 07:20 | NUR ---
RN INITIAL NOTES: PATIENT RESTING IN BED. PATIENT AOX3. NO SIGNS OF DISTRESS. NONLABORED BREATHING NOTED ON ROOM AIR. PATIENT ALERT ORIENTED X3. PATIENT DENIES PAIN. BED IV SITE PATENT AND INTACT. BED IN LOWEST LOCKED POSITION.CALL LIGHT WITHIN REACH
[2017-06-19 07:27] LABS: CALCIUM, SERUM 8.9 mg/dL (8.5-10.1); CREATININE 5.1 mg/dL (0.6-1.3); MAGNESIUM 2.5 mg/dL (1.8-2.4); PHOSPHORUS 6.4 mg/dL (2.5-4.9); POTASSIUM 5.5 mmol/L (3.5-5.1)
[2017-06-19 08:00] VITALS: BP 97/54
[2017-06-19] MEDS: VIT B CMPLX 3/FA/VIT C/BIOTIN 1 TAB TABLET PO SCH (08:17)
[2017-06-19] MEDS: LACTULOSE 10 G/15 ML UDC (PYXIS) PO SCH ×3 (08:17→17:40)
[2017-06-19] MEDS: RIFAXIMIN 550 MG TABLET PO SCH ×2 (08:18→17:40)
[2017-06-19] MEDS: FLUTICASONE/VILANTEROL 1 EACH BLST.W.DEV IH SCH (08:19)
[2017-06-19] MEDS: SEVELAMER CARBONATE 0.8 GM POWD.PACK GT SCH ×3 (08:55→18:48)
[2017-06-19] MEDS: HYDROGEL DRESSING 90 GM TUBE TP SCH (08:56)
[2017-06-19] MEDS: HYDROGEL DRESSING 90 GM TUBE TP PRN (11:03)
--- NOTE | 2017-06-19 13:59 | NUR ---
SHARIF NOTES: NO ORDERS FOR PARACENTESIS FLUID ANALYSIS FROM DR ZEPEDA
--- NOTE | 2017-06-19 13:59 | NUR ---
RN NOTES: DR ZEPEDA CAME AND SPOKE TO PATIENT REGARDING PERFORMING A PARACENTESIS TODAY. DR ORDERED PATIENT TO BE NPO EXCEPT MEDICATIONS. PATIENT REFUSING TO TAKE LACTULOSE WELL RENVELA THAT IS SCHEDULED AT 1300. PATIENT REFUSING BECAUSE HE IS RECEIVING DIALYSIS AT THE MOMENT. HE STATES THAT HE DOES NOT WANT TO GET NAUSEOUS LIKE YESTERDAY. BENEFITS AND RISKS EXPLAINED MULTIPLE TIMES. PATIENT REFUSING. WILL CONTINUE TO OFFER
--- NOTE | 2017-06-19 14:30 | NUR ---
RN NOTES: CREDIT CONTROL MANAGER ADMINISTERED ALBUMIN AT 1430 DUE TO PATIENT'S BLOOD PRESSURE BEING LOW.
[2017-06-19] MEDS ORDERED: ALBUMIN 25% 25 GM in PREMIX 1 EA IV ONE (15:00)
[2017-06-19] MEDS ORDERED: SPIR100T3 PO (15:15)
[2017-06-19 16:00] VITALS: BP 90/55
[2017-06-19 17:00] VITALS: BP 99/53
--- NOTE | 2017-06-19 17:01 | NUR ---
RN NOTES: HEMODIALYSIS OUTPUT 1.5 L. PATIENT RECEIVED PARACENTESIS AT 1630 AND OUTPUT WAS [address] ZEPEDA'S ORDERS
--- NOTE | 2017-06-19 18:41 | NUR ---
RN CLOSING NOTES: PATIENT RESTING IN BED. PATIENT AOX3. NO SIGNS OF DISTRESS. NONLABORED BREATHING NOTED ON ROOM AIR. PATIENT ALERT ORIENTED X3. PATIENT DENIES PAIN. BED IV SITE PATENT AND INTACT. BED IN LOWEST LOCKED POSITION.CALL LIGHT WITHIN REACH. DURING SHIFT, WOUND DRESSING DONE. PATIENT KEPT CLEAN AN DRY. SPOKE WITH KIA FROM CASE MANAGEMENT REGARDING DISCHARGE. SHE STATED THAT CASE MANAGEMENT IS AWAITING FOR INSURANCE REPLY REGARDING HEMODIALYSIS PLACEMENT. DR ZEPEDA AWARE. POSSIBLE DISCHARGE TOMORROW MORNING. I GAVE DR GAMEZ'S OFFICE PHONE NUMBER TO THE PATIENT PER DOCTOR ZEPEDA'S ORDERS. WILL ENDORSE TO NEXT SHIFT
--- NOTE | 2017-06-19 19:30 | NUR ---
MSRN FULLY AWAKE, STATED WILL BE GOING HOME TOMORROW INSTEAD. PENDING AUTHORIZATION FROM INSURANCE FOR OUTPATIENT DIALYSIS. NO NEEDS AT THIS TIME, CLOSELY WATCHED.
[2017-06-19 20:00] VITALS: BP 83/45
--- NOTE | 2017-06-19 20:43 | NUR ---
MSRN BP 83/45. ASYMPTOMATIC, DENIES ANY DIZZINESS OR ANY TYPE OF DISCOMFORTS. EAGER TO GO HOME TOMORROW MORNING STATED BY PATIENT. BEDREST FOR NOW, REMINDED TO CALL STAFF FOR ANY ASSISTANCE OR FURTHER DISCOMFORTS. AMBULATORY, SAFETY PRECAUTIONS EMPHASIZED, WELL UNDERSTOOD.
[2017-06-19 21:04] VITALS: BP 83/45
--- NOTE | 2017-06-20 06:31 | NUR ---
CARMELO SLEPT WELL, CLOSELY WATCHED
[2017-06-20 06:45] VITALS: BP 90/49
[2017-06-20 08:00] VITALS: BP 90/60
--- NOTE | 2017-06-20 08:00 | NUR ---
RN NOTES PATIENT IN THE ROOM, SITTING EDGE OF THE BED, NO ACUTE/ NO RESPIRATORY DISTRESS, PATIENT REFUSED PAIN AT THIS TIME, V/S TAKE BP- 90/60, P-95, PER PATIENT ALWAYS LOW BP IS NORMAL RANGE ALL THE TIME. PATIENT FOCUSED GOING HOME TODAY. PATIENT HEMO DIALYSIS ON UPPER RIGHT CHEST INTACT, DISTENDED ABDOMEN, IV LINE LEFT AC AREA INTACT, NEEDS ATTENDED AND ANTICIPATED, ENCOURAGED TO EXPRESS FEELINGS AND CONCERNS, CALL BILL WITHIN TO REACH. SAFETY PRECAUTION MAINTAINED ALL THE TIME.
[2017-06-20] MEDS: LACTULOSE 10 G/15 ML UDC (PYXIS) PO SCH ×3 (08:31→17:15)
[2017-06-20] MEDS: SEVELAMER CARBONATE 0.8 GM POWD.PACK GT SCH (08:31)
[2017-06-20] MEDS: RIFAXIMIN 550 MG TABLET PO SCH ×2 (08:32→17:15)
[2017-06-20] MEDS: VIT B CMPLX 3/FA/VIT C/BIOTIN 1 TAB TABLET PO SCH (08:32)
[2017-06-20] MEDS: FLUTICASONE/VILANTEROL 1 EACH BLST.W.DEV IH SCH (08:44)
[2017-06-20] MEDS: HYDROGEL DRESSING 90 GM TUBE TP SCH (08:45)
[2017-06-20] MEDS: SEVELAMER CARBONATE 800 MG TABLET PO SCH ×2 (12:27→17:15)
--- NOTE | 2017-06-20 12:29 | NUR ---
RN NOTES PATIENT IN THE ROOM, NO RESPIRATORY DISTRESS, 1300 MEDICATION ADMINISTERED, V/S STABLE, NO C/O PAIN AT THIS TIME, ASSIST ADL'S, AND BATHROOM, CALL LIGHT WITHIN TO REACH, SAFETY PRECAUTION MAINTAINED ALL THE TIME.
[2017-06-20] MEDS: LEVOFLOXACIN 750 MG /D5W 150ML 750 MG in PREMIX 1 EA IV SCH (15:09)
[2017-06-20 16:00] VITALS: BP 91/53
--- NOTE | 2017-06-20 16:00 | NUR ---
RN NOTES PATIENT IN THE ROOM, NO ACUTE DISTRESS/ NO RESPIRATORY DISTRESS, PATIENT MED COMPLIANT, V/S STABLE, . PATIENT AMBULATORY SELF CARE, NEEDS ATTENDED AND ANTICIPATED, CALL LIGHT WITHIN TO REACH, SAFETY PRECAUTION MAINTAINED ALL THE TIME.
--- NOTE | 2017-06-20 18:57 | NUR ---
RN NOTES PATIENT LYING IN THE BED, NO ACUTE/ NO RESPIRATORY DISTRESS, PATIENT REFUSED PAIN, IV LINE LEFT UPPER ARM INTACT, CALL LIGHT WITHIN TO REACH, SAFETY PRECAUTION MAINTAINED ALL THE TIME. ENDORSED ONCOMING NURSE FOR CONTINUATION OF CARE.
--- NOTE | 2017-06-20 19:35 | NUR ---
MS RN INITIAL NOTES PT IS IN BED RESTING, A/O X3 ABLE TO MAKE NEEDS KNOWN. PENDING DC. NO SIGNS OF SOB OR DISTRESS, BREATHING EVENLY AND UNLABORED ON RA. PERMA CATH IN RIGHT UPPER CHEST WALL. IV ACCESS IS INTACT AND PATENT. BED IS IN LOW AND LOCKED POSITION, CALL LIGHT IS WITHIN REACH. WILL CONTINUE TO MONITOR PT
[2017-06-20 20:00] VITALS: BP 102/58
--- NOTE | 2017-06-21 06:44 | NUR ---
MS RN CLOSING NOTES PT IS IN BED ALERT AND AWAKE, STABLE. NO ACUTE CHANGES DURING MY SHIFT. PENDING DISCHARGE. BED IS IN LOW AND LOCKED POSITION, CALL LIGHT WITHIN REACH. WILL ENDORSE TO DAY SHIFT
--- NOTE | 2017-06-21 07:32 | NUR ---
MS/RN NOTES PATIENT RECEIVED IN BED AWAKE AND WATCHING TV. A/O X4, SAME ABLE TO VERBALIZED NEEDS AND CONCERNS, DENIES ANY PAIN OR DISCOMFORTS AT THIS TIME. ON ROOM AIR, RESPIRATION EVEN AND UNLABORED. IV ACCESS ON LEFT UPPER ARM G#22 INTACT AND PATENT. PERMA CATH ON RIGHT UPPER CHEST WALL IN PLACED. HOB ELEVATED. BED IN LOW AND LOCKED POSITION. CALL LIGHT WITHIN REACH. WILL CONTINUE TO MONITOR PT ACCORDINGLY.
[2017-06-21 08:00] VITALS: BP 92/56
[2017-06-21] MEDS: SEVELAMER CARBONATE 800 MG TABLET PO SCH ×3 (09:02→17:05)
[2017-06-21] MEDS: RIFAXIMIN 550 MG TABLET PO SCH ×2 (09:02→17:05)
[2017-06-21] MEDS: VIT B CMPLX 3/FA/VIT C/BIOTIN 1 TAB TABLET PO SCH (09:02)
[2017-06-21] MEDS: LACTULOSE 10 G/15 ML UDC (PYXIS) PO SCH ×3 (09:03→17:05)
[2017-06-21] MEDS: FLUTICASONE/VILANTEROL 1 EACH BLST.W.DEV IH SCH (09:04)
[2017-06-21] MEDS: HYDROGEL DRESSING 90 GM TUBE TP SCH (09:04)
--- NOTE | 2017-06-21 09:21 | NUR ---
RN NOTES PATIENT JUST STARTED ON HEMODIALYSIS BY [facility]OR, PRE-DIALYSIS V/S: BP 88/45MMHG, P 102, R 18, T 98.2F AND SP02 98%. PT IN NO ACUTE SIGNS OF DISTRESS, NO C/O PAIN OR DISCOMFORTS. WILL CONTINUE TO MONITOR
--- NOTE | 2017-06-21 12:09 | NUR ---
RN NOTES PATIENTS S/P HEMODIALYSIS, HD NURSE STATED THAT NO OUTPUT OBTAINED AFTER. POST HD V/S TAKEN; BP 92/51MMHG, P 102, R 18, T 98.1F AND SP02 975. PT REMAINS A/O X4, NO C/O PAIN OR ANY DISCOMFORTS POST DIALYSIS. PT WITH NO S/S OF DISTRESS. WILL CONTINUE TO MONITOR.
[2017-06-21 16:00] VITALS: BP 97/46
--- NOTE | 2017-06-21 19:06 | NUR ---
RN DISCHARGED NOTES PT DISCHARGE HOME IN STABLE CONDITION. PT LEFT UNIT AT 1815 AMBULATORY ACCOMPANIED BY SISTER. A/O X 4 IN NO ACUTE SIGNS OF DISTRESS. EXPLAINED PT THAT HE'S FOR HD TIW AND HE'S AWARE, TRANSPORTATION TO AND FROM DIALYSIS CENTER ARRANGED BY [employer]. V/S TAKEN AND RECORDED. PHOTOS OF SKIN TAKEN AND FILED ON CHART. PT REFUSED ANY VACCINES. BELONGINGS CHECKED, COUNTED AND SIGNED FORM. HEALTH TEACHINGS GIVEN AND VERBALIZED UNDERSTANDING. MD AND CHARGE NURSE AWARE OF DISCHARGE.
== END 2017-06-21 18:28 | disposition home or self-care (01) | DRG 264 ==
LOC: ER 18:43 → MEDSG2 22:30 → MED 06-14 17:16
PROVIDERS: ADMIT Family Medicine; ATTEND Family Medicine
PROC: 0W9G3ZX Drainage of Peritoneal Cavity, Percutaneous Approach, Diagnostic (ICD-10-PCS; principal; 2017-06-11)
PROC: 05HM33Z Insertion of Infusion Device into Right Internal Jugular Vein, Percutaneous Approach (ICD-10-PCS; 2017-06-16)
PROC: B513YZA Fluoroscopy of Right Jugular Veins using Other Contrast, Guidance (ICD-10-PCS; 2017-06-16)
PROC: 5A1D70Z Performance of Urinary Filtration, Intermittent, Less than 6 Hours Per Day (ICD-10-PCS; 2017-06-16)
PROC: 0JHD3XZ Insertion of Tunneled Vascular Access Device into Right Upper Arm Subcutaneous Tissue and Fascia, Percutaneous Approach (ICD-10-PCS; 2017-06-16)
DX: K76.7 Hepatorenal syndrome (principal); N17.0 Acute kidney failure with tubular necrosis; G93.49 Other encephalopathy; G93.40 Encephalopathy, unspecified; K85.90 Acute pancreatitis without necrosis or infection, unspecified; E44.0 Moderate protein-calorie malnutrition; N18.6 End stage renal disease; I12.0 Hypertensive chronic kidney disease with stage 5 chronic kidney disease or end stage renal disease; E87.2 Acidosis; K70.31 Alcoholic cirrhosis of liver with ascites; E87.1 Hypo-osmolality and hyponatremia; E87.70 Fluid overload, unspecified; J44.9 Chronic obstructive pulmonary disease, unspecified; Z99.2 Dependence on renal dialysis; Z80.9 Family history of malignant neoplasm, unspecified; Z87.891 Personal history of nicotine dependence; N39.0 Urinary tract infection, site not specified; N28.1 Cyst of kidney, acquired; D63.8 Anemia in other chronic diseases classified elsewhere; E83.39 Other disorders of phosphorus metabolism; E87.5 Hyperkalemia; F10.20 Alcohol dependence, uncomplicated; Y90.9 Presence of alcohol in blood, level not specified
CPT/HCPCS: 36415; 71010-TC; 76770-TC; 76942-TC; 80048-TC; 80053-TC; 80061-TC; 80076-TC; 81000-TC; 82140-TC; 82570-TC; 83690-TC; 83735-TC; 84100-TC; 84300-TC; 85025-TC; 85610-TC; 85730-TC; 86704; 86706; 86708; 86709; 86803; 87081-TC; 87086-TC; 87186-TC; 87340; 90935-TC; 93307-TC; A4216; A4606; A6248; A6402; A6403; C1750; J0690; J1644; J1956; J2405; J3010; J3490; J7030; J7040; J7050; P9047; Z7610

== ENCOUNTER 2017-06-26 12:57 | Outpatient (CLI) | payer OTHER ==
[~2017-06-26 12:57] MED LIST: FLUT1DIS3 INH; LACT20SO4 PO; RIFA550T PO; SPIR100T3 PO
[2017-06-26 13:39] VITALS: BP 89/54
[2017-06-26 13:45] VITALS: BP 89/54
== END 2017-06-26 23:59 | disposition home or self-care (01) ==
LOC: MSC 12:57
PROVIDERS: ATTEND Internal Medicine
DX: N17.9 Acute kidney failure, unspecified (principal); N18.9 Chronic kidney disease, unspecified; K70.31 Alcoholic cirrhosis of liver with ascites; D64.9 Anemia, unspecified; J44.9 Chronic obstructive pulmonary disease, unspecified; E87.1 Hypo-osmolality and hyponatremia; E44.0 Moderate protein-calorie malnutrition; E88.09 Other disorders of plasma-protein metabolism, not elsewhere classified; Z99.2 Dependence on renal dialysis